=== PATIENT | male | born 1955 | race Caucasian/White ===

== ENCOUNTER 2024-07-31 06:23 | Day surgery (SDC) | payer OTHER, SELFPAY ==
[2024-07-31 11:15] VITALS: BP 164/105; BMI 38.4
[2024-07-31 12:15] VITALS: BP 135/93
[2024-07-31 12:30] VITALS: BP 151/94
== END 2024-07-31 13:09 | disposition home or self-care (01) ==
LOC: GI 06:23
PROVIDERS: ATTENDING PHYSICIAN Internal Medicine Gastroenterology
DX: Z12.11 Encounter for screening for malignant neoplasm of colon (principal); D12.0 Benign neoplasm of cecum; D12.3 Benign neoplasm of transverse colon; K63.3 Ulcer of intestine; K64.8 Other hemorrhoids
CPT/HCPCS: 45385; 45380; 88305

== ENCOUNTER → 2025-07-06 08:37 | Outpatient (REF) | payer OTHER, SELFPAY | LOC: RAD 08:37 | PROVIDERS: ATTENDING PHYSICIAN Student in an Organized Health Care Education/Training Program | DX: Z87.891 Personal history of nicotine dependence (principal) | CPT/HCPCS: 71271 ==